=== PATIENT | female | born 2000 ===

== ENCOUNTER 2020-03-07 19:58 | Emergency (ER) | payer OTHER ==
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
[2020-03-08 00:29] LABS: HCG Qualitative,Urine Negative (Negative)
[2020-03-08] MEDS ORDERED: IBUPROFEN 600 MG TAB PO ONE (00:48)
[2020-03-08] MEDS ORDERED: CYCLOBENZAPRINE 10 MG TAB PO ONE (00:48)
[2020-03-08] MEDS ORDERED: ACETAMINOPHEN 500 MG TAB PO ONE (00:50)
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
[2020-03-08 05:01] VITALS: BP 132/89
== END 2020-03-08 05:01 | disposition home or self-care (01) ==
LOC: ED 19:58
DX: S62.634A Displaced fracture of distal phalanx of right ring finger, initial encounter for closed fracture (principal); S62.633A Displaced fracture of distal phalanx of left middle finger, initial encounter for closed fracture; S01.511A Laceration without foreign body of lip, initial encounter; Z79.1 Long term (current) use of non-steroidal anti-inflammatories (NSAID); Z79.899 Other long term (current) drug therapy; Y04.2XXA Assault by strike against or bumped into by another person, initial encounter; Y93.89 Activity, other specified; Y92.009 Unspecified place in unspecified non-institutional (private) residence as the place of occurrence of the external cause; Y99.8 Other external cause status
CPT/HCPCS: 70450; 70486; 81025